=== PATIENT | male | born 1940 | race Caucasian/White ===

== ENCOUNTER 2019-02-21 06:11 | Day surgery (SDC) | payer MEDICARE, OTHER ==
[~2019-02-21] VITALS: Ht 172.7 cm; Wt 88.2 kg
[~2019-02-21 06:11] MED LIST: SODIUM CHLORIDE 0.9% 1,000 ML IV ONE
[2019-02-21] MEDS ORDERED: BENZOCAINE 20% 50 MCG/SPRAY 57 GM TP ONE (06:12)
[2019-02-21] MEDS ORDERED: ALBUTEROL SULFATE 2.5 MG/0.5 ML NEB SOLUTION NEB ONE (06:12)
[2019-02-21] MEDS ORDERED: LIDOCAINE 4% 50 ML SOLUTION TP ONE (06:12)
[2019-02-21] MEDS ORDERED: LIDOCAINE 2% 5 ML JELLY TP ONE (06:12)
[2019-02-21] MEDS ORDERED: SODIUM CHLORIDE 0.9% 1,000 ML IV ONE (06:30)
[2019-02-21 07:15] LABS: GLUCOMETER DEV NAME(LOC) SDS.; GLUCOSE,POINT OF CARE 102 MG/DL (70-110)
[2019-02-21] MEDS ORDERED: NITR0.4T50 SL (07:28)
[2019-02-21] MEDS ORDERED: RANI150T7 PO (07:28)
[2019-02-21] MEDS ORDERED: ALBU8HFA IH (07:28)
[2019-02-21] MEDS ORDERED: ASPI81 PO (07:28)
[2019-02-21] MEDS ORDERED: CARV6 PO (07:28)
[2019-02-21] MEDS ORDERED: FLUT100B IH (07:28)
[2019-02-21] MEDS ORDERED: CYAN250014 PO (07:28)
[2019-02-21] MEDS ORDERED: BENZ-51 PO (07:28)
[2019-02-21] MEDS ORDERED: FENO160 PO (07:28)
[2019-02-21] MEDS ORDERED: ATOR40TA28 PO (07:28)
[2019-02-21] MEDS ORDERED: ERGO2000 PO (07:28)
[2019-02-21] MEDS ORDERED: UMEC62.5 IH (07:28)
[2019-02-21] MEDS ORDERED: PIOG45TA4 PO (07:28)
[2019-02-21] MEDS ORDERED: LEVO25TA9 PO (07:28)
[2019-02-21] MEDS ORDERED: LORA10TA7 PO (07:28)
[2019-02-21] MEDS ORDERED: LOSA25TA41 PO (07:28)
[2019-02-21] MEDS ORDERED: MONT10TA21 PO (07:28)
[2019-02-21] MEDS ORDERED: ADV500 IH (07:28)
[2019-02-21] MEDS ORDERED: OMEP20 PO (07:28)
[2019-02-21] MEDS ORDERED: FentaNYL CITRATE-PF 100 MCG/2 ML VIAL ONE (07:36)
[2019-02-21] MEDS ORDERED: MIDAZOLAM HCL 2 MG/2 ML VIAL ONE (07:36)
[2019-02-21] MEDS ORDERED: MethylPREDNISolone SOD SUCC 125 MG/2 ML VIAL IVP ONE (08:30)
[2019-02-21] MEDS ORDERED: MethylPREDNISolone SOD SUCC 125 MG/2 ML VIAL ONE (08:35)
[2019-02-21] MEDS ORDERED: OXYGEN THERAPY IH SCH (20:00)
== END 2019-02-21 10:00 | disposition home or self-care (01) ==
LOC: SURGERY 06:11
PROVIDERS: ATTEND Internal Medicine Critical Care Medicine
DX: J38.4 Edema of larynx (principal); B37.0 Candidal stomatitis; J45.909 Unspecified asthma, uncomplicated; J98.8 Other specified respiratory disorders; I10 Essential (primary) hypertension; E11.9 Type 2 diabetes mellitus without complications; Z79.899 Other long term (current) drug therapy; Z98.890 Other specified postprocedural states
CPT/HCPCS: 31623; 31624; 71045; 82962; 87015; 87070; 87101; 87205; 87206; 87220; 88108; 88312; J2250; J2930; J3010; J7030

== ENCOUNTER 2020-09-01 06:06 | Day surgery (SDC) | payer MEDICARE, OTHER ==
[2020-08-29 11:17] LABS: COVID AG,FIA SOURCE NASOPHARYNGEAL
[~2020-09-01] VITALS: Ht 172.7 cm; Wt 88.6 kg
[~2020-09-01 06:06] MED LIST changes: +ALBU8HFA IH; +ASPI-1450 PO; +ATOR40TA28 PO; +BENZ-51 PO; +CARV6 PO; +CYAN250014 PO; +ERGO2000 PO; +FENO160T41 PO; +FLUT100B IH; +FLUT1DIS26 IH; +LEVO25TA9 PO; +LORA10TA7 PO; +LOSA25TA21 PO; +MONT-35 PO; +NITR0.4T50 SL; +OMEP20 PO; +PIOG45TA4 PO; +RANI150T7 PO; -SODIUM CHLORIDE 0.9% 1,000 ML IV ONE; +UMEC62.5 IH
[2020-09-01] MEDS ORDERED: ALBUTEROL SULFATE 2.5 MG/0.5 ML NEB SOLUTION NEB ONE (06:07)
[2020-09-01] MEDS ORDERED: LIDOCAINE 4% 50 ML SOLUTION TP ONE (06:07)
[2020-09-01] MEDS ORDERED: LIDOCAINE 2% 30 ML JELLY TP ONE (06:07)
[2020-09-01] MEDS ORDERED: BENZOCAINE 20% 50 MCG/SPRAY 57 GM TP ONE (06:07)
[2020-09-01] MEDS ORDERED: SODIUM CHLORIDE 0.9% 1,000 ML IV ONE (06:30)
[2020-09-01] MEDS ORDERED: FentaNYL CITRATE PF 100 MCG/2 ML VIAL ONE (07:48)
[2020-09-01] MEDS ORDERED: MIDAZOLAM HCL 2 MG/2 ML VIAL ONE (07:48)
[2020-09-01 08:08] LABS: GLUCOMETER DEV NAME(LOC) SDS.; GLUCOSE,POINT OF CARE 108 MG/DL (70-110)
[2020-09-01] MEDS ORDERED: MethylPREDNISolone SOD SUCC 125 MG/2 ML VIAL IVP ONE (09:00)
[2020-09-01] MEDS ORDERED: LORazepam 2 MG/ML VIAL ONE (09:21)
[2020-09-01] MEDS ORDERED: MethylPREDNISolone SOD SUCC 125 MG/2 ML VIAL ONE (09:55)
[2020-09-01] MEDS ORDERED: OXYGEN THERAPY IH SCH (20:00)
== END 2020-09-01 11:00 | disposition home or self-care (01) ==
LOC: SURGERY 06:06
PROVIDERS: ATTEND Internal Medicine Critical Care Medicine
DX: J38.4 Edema of larynx (principal); B37.0 Candidal stomatitis
CPT/HCPCS: 31623; 31624; 71045; 82962; 87070; 87101; 87206; 87220; 87426; 88184; 88185; C9803; J2060; J2250; J2930; J3010; 87205; 88108; 88312; J7613; Z7610

== ENCOUNTER 2022-03-03 05:19 | Day surgery (SDC) | payer MEDICARE, OTHER ==
[2022-03-02 10:51] LABS: COVID AG,FIA SOURCE NASAL SWAB
[~2022-03-03] VITALS: Ht 170.2 cm; Wt 86.8 kg
[~2022-03-03 05:19] MED LIST changes: -BENZ-51 PO; +BENZ-70 PO; -FENO160T41 PO; +FENO160T75 PO; +LOSA-381 PO; -LOSA25TA21 PO
[2022-03-03] MEDS ORDERED: LIDOCAINE 4% 50 ML SOLUTION TP ONE (05:20)
[2022-03-03] MEDS ORDERED: BENZOCAINE 20% 50 MCG/SPRAY 57 GM TP ONE (05:20)
[2022-03-03] MEDS ORDERED: LIDOCAINE 2% 11 ML JELLY TP ONE (05:20)
[2022-03-03] MEDS ORDERED: SODIUM CHLORIDE 0.9% 1,000 ML ONE (05:51)
[2022-03-03] MEDS ORDERED: SODIUM CHLORIDE 0.9% 1,000 ML IV ONE (06:30)
[2022-03-03 07:41] LABS: GLUCOMETER DEV NAME(LOC) SDS.; GLUCOSE,POINT OF CARE 87 MG/DL (70-110)
[2022-03-03] MEDS ORDERED: GLIP10TA10 PO (07:46)
[2022-03-03] MEDS ORDERED: FentaNYL CITRATE PF 100 MCG/2 ML VIAL ONE (08:04)
[2022-03-03] MEDS ORDERED: MIDAZOLAM HCL 5 MG/ML VIAL ONE (08:04)
[2022-03-03] MEDS ORDERED: MethylPREDNISolone SOD SUCC 125 MG/2 ML VIAL ONE (09:15)
[2022-03-03] MEDS ORDERED: MethylPREDNISolone SOD SUCC 125 MG/2 ML VIAL IVP ONE (09:15)
== END 2022-03-03 10:45 | disposition home or self-care (01) ==
LOC: SURGERY 05:19
PROVIDERS: ATTEND Internal Medicine Critical Care Medicine
DX: J38.4 Edema of larynx (principal); B37.0 Candidal stomatitis; J45.909 Unspecified asthma, uncomplicated; I10 Essential (primary) hypertension; Z79.899 Other long term (current) drug therapy; Z98.890 Other specified postprocedural states; Z90.49 Acquired absence of other specified parts of digestive tract; Z20.822 Contact with and (suspected) exposure to COVID-19
CPT/HCPCS: 87426; 31623; 82962; 87206; 87101; 87220; 87070; 31624; 71045; 87015; 93005; C9803; J3010; J2930; J2250; Q9967; J7030; Z7610